=== PATIENT | female | born 1970 | race African-American/Black ===

== ENCOUNTER 2018-08-05 09:01 | Emergency (ER) | payer MEDICAID, OTHER ==
[~2018-08-05] VITALS: Ht 157.5 cm; Wt 82.0 kg
[2018-08-05 09:35] VITALS: BP 142/91
== END 2018-08-05 14:17 | disposition left against medical advice (07) ==
LOC: ER 09:01
DX: Z53.21 Procedure and treatment not carried out due to patient leaving prior to being seen by health care provider (principal); F32.9 Major depressive disorder, single episode, unspecified; I10 Essential (primary) hypertension; J45.909 Unspecified asthma, uncomplicated; M54.30 Sciatica, unspecified side; M19.90 Unspecified osteoarthritis, unspecified site

== ENCOUNTER 2019-09-09 20:51 | Emergency (ER) | payer MEDICAID ==
[~2019-09-09] VITALS: Ht 157.5 cm; Wt 86.0 kg
[2019-09-09 20:59] VITALS: BP 153/70
== END 2019-09-09 22:53 | disposition left against medical advice (07) ==
LOC: ER 20:51
DX: S61.411A Laceration without foreign body of right hand, initial encounter (principal); X58.XXXA Exposure to other specified factors, initial encounter; Y93.89 Activity, other specified; Y92.89 Other specified places as the place of occurrence of the external cause; Y99.8 Other external cause status; Z53.21 Procedure and treatment not carried out due to patient leaving prior to being seen by health care provider